=== PATIENT | male | born 1955 | race Caucasian/White ===

== ENCOUNTER → 2018-01-01 | Outpatient (CLI) | payer SELFPAY ==
--- NOTE | 2018-01-01 17:26 | Diagnostic Imaging Report ---
PROCEDURE:TESTICULAR DOPPLER ULTRASOUND COMPARISON:None. INDICATIONS:PAIN IN TESTICLE TECHNIQUE:The scrotum was evaluated with roca scale and color duplex Doppler sonography. FINDINGS: TESTES: Right testis measures 4.3 x 2.1 x 3.1 cm. Left testis measures 4.5 x 2.7 x 3.3 cm. Increased vascularity of the left testicle. Normal vascularity of the right testicle. No masses bilaterally. EPIDIDYMIS: Left epididymis relatively enlarged compared to the right. The left epididymis measures 2.7 x 1.4 x 2.8 cm. Increased vascularity and heterogeneity of the left epididymis. The right epididymis measures 1.4 x 0.8 x 1.4 cm. Normal vascularity and appearance of the right epididymis OTHER: Small left varicocele with increased color Doppler flow with Valsalva. Small left hydrocele with a few septations. Morphologically normal-appearing left inguinal lymph node measuring 1.4 x 1.3 x 2.5 cm, likely reactive. No focal bulges in the inguinal soft tissues to suggest inguinal hernias bilaterally. CONCLUSION: Left epididymoorchitis. Mildly complex small left hydrocele. Small left varicocele. Dictated by: Kirby Rodríguez M.D. on 01/01/2018 at 17:31 Electronically approved by: Kirby Rodríguez M.D. on 01/01/2018 at 17:31
--- NOTE | 2018-01-01 17:28 | Diagnostic Imaging Report ---
PROCEDURE:TESTICULAR ULTRASOUND COMPARISON:None. INDICATIONS:PAIN IN TESTICLE TECHNIQUE:The scrotum was evaluated with roca scale and color duplex Doppler sonography. FINDINGS: Please see same day testicular Doppler for full report. CONCLUSION: Please see same day testicular Doppler for full report. Dictated by: Kirby Rodríguez M.D. on 01/01/2018 at 17:33 Electronically approved by: Kirby Rodríguez M.D. on 01/01/2018 at 17:33
== END ==
LOC: US 14:59
PROVIDERS: ATTEND Urology
DX: N50.819 Testicular pain, unspecified (principal)
CPT/HCPCS: 76870; 93976